=== PATIENT | male | born 1995 | race Caucasian/White ===

== ENCOUNTER 2018-06-26 11:36 | Emergency (ER) | payer MEDICAID ==
[~2018-06-26] VITALS: Ht 177.8 cm; Wt 82.0 kg
[2018-06-26] MEDS ORDERED: SERT20OR6 PO (11:56)
[2018-06-26] MEDS ORDERED: OLAN10TA3 PO (11:56)
[2018-06-26] MEDS ORDERED: ALPRAZOLAM 0.5 MG TABLET PO ONE (20:30)
[2018-06-26 21:11] VITALS: BP 133/73
== END 2018-06-26 21:12 | disposition home or self-care (01) ==
LOC: ER 14:34
DX: F41.9 Anxiety disorder, unspecified (principal); I49.8 Other specified cardiac arrhythmias; F12.10 Cannabis abuse, uncomplicated; Z79.899 Other long term (current) drug therapy
CPT/HCPCS: 99284